=== PATIENT | female | born 1950 | race Caucasian/White ===

== ENCOUNTER → 2019-02-18 10:36 | Outpatient (CLI) | payer MEDICARE, OTHER, SELFPAY ==
--- NOTE | 2019-02-18 | DI.RAD.S_ITS ---
PROCEDURE: FL BARIUM SWALLOW INDICATIONS: Dysphonia COMPARISON: None. FINDINGS: Function: There is normal esophageal peristalsis. There is mild elicited gastroesophageal reflux. There is normal transit of a calibrated barium tablet through the esophagus into the stomach. Morphology: A small sliding hiatal hernia is present. Air-contrast images demonstrate normal mucosal morphology. No esophageal strictures, extrinsic mass effects, or diverticula. Limited images of the stomach demonstrate normal appearance. There is a moderate-sized duodenal diverticulum in the horizontal segment of the duodenum. IMPRESSION: 1. A small hiatal hernia. 2. Mild gastric esophageal reflux. 3. A moderate-sized duodenal diverticulum. Dictated by: Levy Matthews M.D. on 02/18/2019 at 11:49 Approved by: Levy Matthews M.D. on 02/18/2019 at 11:51
== END ==
PROVIDERS: PCP Internal Medicine; Visit Provider Otolaryngology
DX: R49.0 Dysphonia (principal); K44.9 Diaphragmatic hernia without obstruction or gangrene; K21.9 Gastro-esophageal reflux disease without esophagitis; K57.10 Diverticulosis of small intestine without perforation or abscess without bleeding; R13.19 Other dysphagia
CPT/HCPCS: 74220

== ENCOUNTER → 2019-07-01 12:24 | Outpatient (CLI) | payer MEDICARE, OTHER, SELFPAY ==
--- NOTE | 2019-07-01 12:30 | DI.RAD.S_ITS ---
PROCEDURE: XR CERVICAL SPINE 4V OR 5V INDICATIONS: Cervical spondylosis TECHNIQUE: 5 views of the cervical spine acquired. COMPARISON: Cervical facet injection fluoroscopic images 11/15/2017. MR cervical spine 09/22/2017 FINDINGS: Bones: There is extensive degenerative change most pronounced at the C4-C5 and C5-C6 levels. This is demonstrable by intervertebral disc space height loss, endplate sclerosis, and osteophytosis. The degenerative changes have progressed compared to August 2017. There is mild retrolisthesis of C5 on C6. No fractures or dislocations to the T1 level. There is bony foraminal stenosis at C4-C5, left greater than right. Soft tissues: No prevertebral soft tissue swelling. Atherosclerotic calcifications. IMPRESSION: 1. Severe bony foraminal stenosis at the left C4-C5 level. 2. Extensive degenerative change most pronounced at C4-C5 and C5-C6. Dictated by: Clovis Barnett M.D. on 07/01/2019 at 13:07 Approved by: Clovis Barnett M.D. on 07/01/2019 at 13:13
== END ==
PROVIDERS: PCP Physician Assistant; Visit Provider Physical Medicine & Rehabilitation
DX: M47.22 Other spondylosis with radiculopathy, cervical region (principal); M48.02 Spinal stenosis, cervical region
CPT/HCPCS: 72050

== ENCOUNTER → 2019-07-11 13:14 | Outpatient (CLI) | payer MEDICARE, OTHER, SELFPAY ==
[2019-07-11 14:18] LABS: Add Manual Diff / Slide Review NO; Basophils Absolute Auto 0 /uL (0-100); Basophils Percent Auto 0.6 % (0-2); Eosinophils Absolute Auto 200 /uL (0-450); Hematocrit 42.1 % (36-46); Hemoglobin 14.2 g/dL (12.0-16.0); Lymphocytes Absolute Auto 1200 /uL (1100-4500); Lymphocytes Percent Auto 22.4 % (25-40); Mean Corpuscular HGB Conc 33.6 % (30-36); Mean Corpuscular Hemoglobin 30.4 PG (26-34); Mean Corpuscular Volume 90.3 fL (80-100); Monocytes Absolute Auto 400 /uL (0-900); Monocytes Percent Auto 8.2 % (3-14); Neutrophils Absolute Auto 3600 /uL (1500-7000); Neutrophils Percent Auto 65.8 % (50-75); Platelet Count 243 X10^3/uL (150-400); Red Blood Cell Count 4.66 X10^6/uL (4.0-5.2); Red Cell Distribution Width 13.8 % (11.6-14.8); White Blood Cell Count 5.4 X10^3/uL (4.5-11.0)
[2019-07-11 14:49] LABS: Alanine Aminotransferase 15 IU/L (<35); Albumin 4.4 g/dL (3.5-5.0); Albumin Globulin Ratio 1.9 (1.0-2.8); Alkaline Phosphatase 46 U/L (38-126); Aspartate Aminotransferase 26 IU/L (14-36); Bilirubin Total 0.6 mg/dL (0.2-1.3); Blood Urea Nitrogen 20 mg/dL (7-17); Calcium 10.1 mg/dL (8.4-10.2); Carbon Dioxide 32 mmol/L (22-32); Chloride 102 mmol/L (98-107); Cholesterol 226 mg/dL (140-199); Estimated Glomerular Filt Rate > 60.0 mL/min (>60); Globulin 2.3 g/dL (1.7-4.1); Glucose 86 mg/dL (80-110); HDL Cholesterol 92 mg/dL (40-60); HEMOLYSIS < 15 (0-50); LDL Cholesterol Calculated 118 mg/dL (<100); Potassium 4.3 mmol/L (3.4-5.1); Sodium 142 mmol/L (137-145); Total Protein 6.7 g/dL (6.3-8.2); Triglycerides 78 mg/dL (35-150)
== END ==
PROVIDERS: PCP Physician Assistant; Visit Provider Physician Assistant
DX: E78.2 Mixed hyperlipidemia (principal); E55.9 Vitamin D deficiency, unspecified
CPT/HCPCS: 36415; 80053; 80061; 85025

== ENCOUNTER → 2019-08-28 10:54 | Outpatient (CLI) | payer MEDICARE, OTHER, SELFPAY ==
--- NOTE | 2019-08-28 | DI.RAD.S_ITS ---
PROCEDURE: XR CHEST 2V INDICATIONS: COUGH TECHNIQUE: 2 views of the chest were acquired. COMPARISON: None. FINDINGS: Surgical changes and devices: None. Lungs and pleura: Scattered subsegmental atelectasis and/or scarring. No focal consolidation. No pleural effusions or pneumothorax. Mediastinum: Mediastinal contours are normal. Heart size is normal. Bones and chest wall: No suspicious bony abnormalities. Soft tissues appear unremarkable. IMPRESSION: No acute disease Dictated by: Andres Yadav M.D. on 08/28/2019 at 13:59 Approved by: Andres Yadav M.D. on 08/28/2019 at 14:00
== END ==
PROVIDERS: PCP Physician Assistant; Visit Provider Physician Assistant
DX: R05 Cough (principal)
CPT/HCPCS: 71046

== ENCOUNTER → 2019-10-28 11:30 | Outpatient (CLI) | payer MEDICARE, OTHER, SELFPAY ==
--- NOTE | 2019-10-28 11:32 | DI.MG.S_ITS ---
BILATERAL DIGITAL SCREENING MAMMOGRAM 3D/2D WITH CAD: 10/28/2019 CLINICAL: Routine screening. Comparison is made to exams dated: 09/23/2018 mammogram, 08/01/2016 mammogram, and 02/17/2014 mammogram - [facility]. There are scattered fibroglandular elements in both breasts. Current study was also evaluated with a Computer Aided Detection (CAD) system. No significant masses, calcifications, or other findings are seen in either breast. There has been no significant interval change. IMPRESSION: NEGATIVE There is no mammographic evidence of malignancy. A 1 year screening mammogram is recommended. This exam was interpreted at Station ID: [id number]. NOTE: For mammograms, a report in lay terms will be sent to the patient. Approximately 15% of breast malignancies will not be visualized mammographically. In the management of a palpable breast mass, a negative mammogram must not discourage biopsy of a clinically suspicious lesion. Electronically Signed By: Vitaly east/ramiro:10/28/2019 12:31:03 letter sent: Normal Exam ACR BI-RADS Category 1: Negative 3341F
== END ==
PROVIDERS: PCP Physician Assistant; Referring Provider Physician Assistant; Visit Provider Physician Assistant
DX: Z12.31 Encounter for screening mammogram for malignant neoplasm of breast (principal)
CPT/HCPCS: 77063; 77067

== ENCOUNTER → 2020-07-12 19:42 | Outpatient (ROUT) | payer MEDICARE, OTHER, SELFPAY ==
[2020-07-12 20:01] LABS: Add Manual Diff / Slide Review NO; Basophils Absolute Auto 0 /uL (0-100); Basophils Percent Auto 0.7 % (0-2); Eosinophils Absolute Auto 100 /uL (0-450); Eosinophils Percent Auto 2.6 % (2-4); Hematocrit 41.5 % (36-46); Hemoglobin 13.7 g/dL (12.0-16.0); Lymphocytes Absolute Auto 1000 /uL (1100-4500); Lymphocytes Percent Auto 21.6 % (25-40); Mean Corpuscular Hemoglobin 30.2 PG (26-34); Mean Corpuscular Volume 91.5 fL (80-100); Monocytes Absolute Auto 300 /uL (0-900); Monocytes Percent Auto 7.4 % (3-14); Neutrophils Absolute Auto 3200 /uL (1500-7000); Neutrophils Percent Auto 67.7 % (50-75); Platelet Count 224 X10^3/uL (150-400); Red Blood Cell Count 4.53 X10^6/uL (4.0-5.2); Red Cell Distribution Width 13.9 % (11.6-14.8); White Blood Cell Count 4.7 X10^3/uL (4.5-11.0)
[2020-07-12 20:06] LABS: HEMOLYSIS < 15 (0-50); Iron 84 ug/dL (37-170)
[2020-07-12 20:09] LABS: Alanine Aminotransferase 16 IU/L (<35); Albumin 4.1 g/dL (3.5-5.0); Albumin Globulin Ratio 1.6 (1.0-2.8); Alkaline Phosphatase 49 U/L (38-126); Aspartate Aminotransferase 30 IU/L (14-36); Bilirubin Total 0.6 mg/dL (0.2-1.3); Blood Urea Nitrogen 18 mg/dL (7-17); Calcium 9.8 mg/dL (8.4-10.2); Carbon Dioxide 32 mmol/L (22-32); Chloride 104 mmol/L (98-107); Cholesterol 210 mg/dL (140-199); Estimated Glomerular Filt Rate > 60.0 mL/min (>60); Globulin 2.5 g/dL (1.7-4.1); Glucose 96 mg/dL (80-110); HDL Cholesterol 90 mg/dL (40-60); HEMOLYSIS < 15 (0-50); LDL Cholesterol Calculated 108 mg/dL (<100); Sodium 138 mmol/L (137-145); Total Protein 6.6 g/dL (6.3-8.2); Triglycerides 61 mg/dL (35-150)
[2020-07-12 20:17] LABS: Percent Iron Saturation 34 % (15-50); Total Iron Binding Capacity 249 ug/dL (265-497); Transferrin 203 mg/dL (206-381)
[2020-07-12 20:24] LABS: Vitamin D 25 Hydroxy (D3) 65.1 ng/mL (30.0-100.0)
[2020-07-12 20:42] LABS: Ferritin 65 ng/mL (11-264)
== END ==
PROVIDERS: PCP Physician Assistant; Visit Provider Physician Assistant
DX: E78.2 Mixed hyperlipidemia (principal); D69.9 Hemorrhagic condition, unspecified; E55.9 Vitamin D deficiency, unspecified
CPT/HCPCS: 80053; 80061; 82306; 82728; 83540; 83550; 85025

== ENCOUNTER → 2020-10-29 11:22 | Outpatient (CLI) | payer MEDICARE, SELFPAY ==
--- NOTE | 2020-10-29 | DI.MG.S_ITS ---
BILATERAL DIGITAL SCREENING MAMMOGRAM 3D/2D WITH CAD: 10/29/2020 CLINICAL: Routine screening. Comparison is made to exams dated: 10/28/2019 mammogram - [facility], 09/23/2018 mammogram, and 08/01/2016 mammogram - [facility]. There are scattered fibroglandular elements in both breasts. Current study was also evaluated with a Computer Aided Detection (CAD) system. No significant masses, calcifications, or other findings are seen in either breast. There has been no significant interval change. IMPRESSION: NEGATIVE There is no mammographic evidence of malignancy. A 1 year screening mammogram is recommended. This exam was interpreted at Station ID: [id number]. NOTE: For mammograms, a report in lay terms will be sent to the patient. Approximately 15% of breast malignancies will not be visualized mammographically. In the management of a palpable breast mass, a negative mammogram must not discourage biopsy of a clinically suspicious lesion. Electronically Signed By: Narinder albarran/ramiro:10/29/2020 12:32:28 letter sent: Normal Exam ACR BI-RADS Category 1: Negative 3341F
== END ==
PROVIDERS: PCP Physician Assistant; Referring Provider Physician Assistant; Visit Provider Physician Assistant
DX: Z12.31 Encounter for screening mammogram for malignant neoplasm of breast (principal)
CPT/HCPCS: 77063; 77067

== ENCOUNTER → 2021-08-03 14:27 | Outpatient (CLI) | payer MEDICARE, SELFPAY ==
--- NOTE | 2021-08-03 14:29 | DI.RAD.S_ITS ---
PROCEDURE: XR DEXA AXIAL SKELETON INDICATIONS: Age-related osteoporosis without current pathologic COMPARISON: None. FINDINGS: This blank DEXA report has been sent in error by the PACS system. The correct and complete report will be forthcoming in 1-2 days. Thank you for your patience and understanding. Dictated by: Martha Mcconnell MD, PhD on 08/03/2021 at 16:02 Approved by: Martha Mcconnell MD, PhD on 08/03/2021 at 16:02
== END ==
PROVIDERS: PCP Physician Assistant; Referring Provider Student in an Organized Health Care Education/Training Program; Visit Provider Student in an Organized Health Care Education/Training Program
DX: Z13.820 Encounter for screening for osteoporosis (principal); M81.0 Age-related osteoporosis without current pathological fracture; Z78.0 Asymptomatic menopausal state; Z82.62 Family history of osteoporosis
CPT/HCPCS: 77080

== ENCOUNTER → 2021-11-03 13:10 | Outpatient (CLI) | payer OTHER, SELFPAY ==
--- NOTE | 2021-11-03 | DI.MG.S_ITS ---
BILATERAL DIGITAL SCREENING MAMMOGRAM 3D/2D WITH CAD: 11/03/2021 CLINICAL: Routine screening. Family history of breast cancer. Comparison is made to exams dated: 10/29/2020 mammogram, 10/28/2019 mammogram - [facility], 09/23/2018 mammogram, and 08/01/2016 mammogram - [facility]. There are scattered fibroglandular elements in both breasts. Current study was also evaluated with a Computer Aided Detection (CAD) system. There is possible architectural distortion in the left breast at 1 o'clock middle depth. This is more prominent. No other significant masses, calcifications, or other findings are seen in either breast. IMPRESSION: INCOMPLETE: NEEDS ADDITIONAL IMAGING EVALUATION The possible architectural distortion in the left breast is indeterminate. Additional views with possible ultrasound are recommended. This exam was interpreted at Station ID: [id number]. NOTE: For mammograms, a report in lay terms will be sent to the patient. Approximately 15% of breast malignancies will not be visualized mammographically. In the management of a palpable breast mass, a negative mammogram must not discourage biopsy of a clinically suspicious lesion. Electronically Signed By: Clovis Barnett M.D. slc/:11/03/2021 14:51:55 letter sent: Additional Imaging Needed ACR BI-RADS Category 0: Incomplete 3340F
== END ==
PROVIDERS: PCP Physician Assistant; Referring Provider Physician Assistant; Visit Provider Physician Assistant
DX: Z12.31 Encounter for screening mammogram for malignant neoplasm of breast (principal); Z80.3 Family history of malignant neoplasm of breast
CPT/HCPCS: 77063; 77067

== ENCOUNTER → 2021-12-09 12:33 | Outpatient (CLI) | payer OTHER, SELFPAY ==
--- NOTE | 2021-12-09 | DI.MG.S_ITS ---
UNILATERAL LEFT DIGITAL DIAGNOSTIC MAMMOGRAM 3D/2D WITH ADDITIONAL VIEWS: 12/09/2021 CLINICAL: Additional evaluation requested from prior study. Comparison is made to exams dated: 11/03/2021 mammogram, 10/29/2020 mammogram, and 10/28/2019 mammogram - [facility]. There are scattered fibroglandular elements in left breast. The possible architectural distortion in the left breast at 1 o'clock middle depth is no longer seen and is consistent with fibroglandular tissue. This is not seen in additional views. No other significant masses or calcifications are seen in the breast. IMPRESSION: BENIGN There is no mammographic evidence of malignancy. A 1 year screening mammogram is recommended. This exam was interpreted at Station ID: [id number]. NOTE: For mammograms, a report in lay terms will be sent to the patient. Approximately 15% of breast malignancies will not be visualized mammographically. In the management of a palpable breast mass, a negative mammogram must not discourage biopsy of a clinically suspicious lesion. Electronically Signed By: Gatito Cisneros acr/ramiro:12/09/2021 13:02:13 letter sent: Normal Exam ACR BI-RADS Category 2: Benign Finding(s) 3342F
== END ==
PROVIDERS: PCP Physician Assistant; Referring Provider Physician Assistant; Visit Provider Physician Assistant
DX: R92.8 Other abnormal and inconclusive findings on diagnostic imaging of breast (principal)
CPT/HCPCS: 77065; G0279

== ENCOUNTER → 2021-12-24 15:23 | Outpatient (CLI) | payer MEDICARE, SELFPAY | PROVIDERS: PCP Physician Assistant; Visit Provider Physician Assistant | DX: R30.0 Dysuria (principal) | CPT/HCPCS: 87086 ==

== ENCOUNTER → 2022-01-19 12:05 | Outpatient (CLI) | payer MEDICARE, SELFPAY ==
--- NOTE | 2022-01-19 12:07 | DI.US.S_ITS ---
PROCEDURE: US RENAL COMPLETE INDICATIONS: Hematuria, unspecified TECHNIQUE: Real-time scanning was performed of the kidneys and bladder, with image documentation. COMPARISON: None. FINDINGS: Kidneys: Kidneys are normal in size. Right kidney measures 12.2 cm long; left kidney measures 10.6 cm long. Right renal cortical thickness is 1.2 cm; left renal cortical thickness is 1.4 cm. Renal cortical echotexture is normal. No hydronephrosis or nephrolithiasis. No suspicious solid mass lesions. Bladder: Pre-void bladder volume is 26 mL. Post-void residual is 12 mL. Pre-void images demonstrate no intraluminal masses or stones. On pre-void images, neither ureteral jets are noted with color Doppler interrogation. (Of note, ureteral jets may not be detectable in up to 25% of cases due to insufficient differences in specific gravity between ureteral and bladder urine). Miscellaneous: No free pelvic fluid. IMPRESSION: Normal appearance of the kidneys bilaterally. Dictated by: Ashvin Garcia [facility] Interpreted: Rivera Burnett MD on 01/19/2022 at 12:59 Transcribed by: JOAQUIN on 01/19/2022 at 13:00 Approved by: Rivera Burnett M.D. on 01/19/2022 at 16:50
== END ==
PROVIDERS: PCP Physician Assistant; Referring Provider Physician Assistant; Visit Provider Physician Assistant
DX: R10.9 Unspecified abdominal pain (principal); R31.9 Hematuria, unspecified
CPT/HCPCS: 76770

== ENCOUNTER → 2022-04-20 12:42 | Outpatient (CLI) | payer MEDICARE, SELFPAY ==
--- NOTE | 2022-04-20 12:45 | DI.RAD.S_ITS ---
PROCEDURE: XR HUMERUS LT 2V INDICATIONS: Fall on glass, rule out foreign body TECHNIQUE: 2 views of the humerus were acquired. COMPARISON: None. FINDINGS: Bones: No fractures or dislocations. No suspicious bony lesions. Soft tissues: No suspicious soft tissue calcifications. No radiopaque foreign body. IMPRESSION: No visualized acute fracture or dislocation. However, if clinical concern and/or pain persist, short interval imaging followup in 7-10 days is recommended, as occult injury cannot be definitively excluded. No radiopaque foreign body. Dictated by: Sarah Fontenot M.D. on 04/20/2022 at 13:35 Approved by: Sarah Fontenot M.D. on 04/20/2022 at 13:35
--- NOTE | 2022-04-20 12:45 | DI.RAD.S_ITS ---
PROCEDURE: XR KNEE LT 3V INDICATIONS: Fall on left knee, history of reported TKA TECHNIQUE: 3 views of the knee were acquired. COMPARISON: None. FINDINGS: Bones: No fractures or dislocations. No suspicious bony lesions. Knee arthroplasty is present. Hardware is intact without hardware fracture or periprosthetic lucency to suggest loosening. Soft tissues: No joint effusion. No suspicious soft tissue calcifications. IMPRESSION: No visualized acute fracture or dislocation. However, if clinical concern and/or pain persist, short interval imaging followup in 7-10 days is recommended, as occult injury cannot be definitively excluded. Dictated by: Sarah Fontenot M.D. on 04/20/2022 at 13:34 Approved by: Sarah Fontenot M.D. on 04/20/2022 at 13:35
== END ==
PROVIDERS: PCP Physician Assistant; Referring Provider Physician Assistant Medical; Visit Provider Physician Assistant Medical
DX: S41.112A Laceration without foreign body of left upper arm, initial encounter (principal); M25.562 Pain in left knee
CPT/HCPCS: 73060; 73562

== ENCOUNTER → 2022-05-08 12:22 | Outpatient (CLI) | payer MEDICARE, SELFPAY ==
--- NOTE | 2022-05-08 | DI.ECHO.S_ITS ---
[facility] +---------+ : : [address] : [place] : : : : [id number] : : : : Phone: [phone]---------+ Echocardiogram Report + + :Name: ABELARDO PONCE Study Date: 05/08/2022 Height: 66 in : :[facility] ReadingLocation: Weight: 160 lb : : Gender: Female BSA: 1.8 m2 : :: 1950 Age: 71 yrs BP: 144/85 mmHg: :Reason For Study: Atrial fibrillation : :Ordering Physician: GIAN, : :WAN Performed By: Daniele Zhao : :Referring: WAN DAI : + + Interpretation Summary The left ventricle is normal in size and wall thickness. Left ventricular systolic function is normal. The ejection fraction is estimated to be 55-60%. There are no focal wall motion abnormalities. The right ventricle is normal in size and function. Pulmonary artery pressures cannot be estimated because of the lack of a measurable TR jet velocity. Both atria are normal in size. There is mild mitral regurgitation. There is mild aortic regurgitation. There is no other significant valvular heart disease. The aortic root is normal size. Procedure: A two-dimensional transthoracic echocardiogram with color flow and Doppler was performed. The study quality was technically difficult. There is no prior echocardiogram noted for this patient. The patient was in normal sinus rhythm during the exam. Left Ventricle: The left ventricle is normal in size and wall thickness. Left ventricular systolic function is normal. The ejection fraction is estimated to be 55-60%. There are no focal wall motion abnormalities. Diastolic function could not be accurately assessed due to contradictory data. Right Ventricle: The right ventricle is normal in size and function. Atria: Both atria are normal in size. The interatrial septum grossly appears intact with no obvious evidence for an atrial septal defect. Mitral Valve: There is mild mitral annular calcification. There is mild mitral regurgitation. Aortic Valve: There is mild aortic valve sclerosis. There is mild aortic regurgitation. Tricuspid Valve: The tricuspid valve is normal in structure and function. There is trace tricuspid regurgitation. Pulmonary artery pressures cannot be estimated because of the lack of a measurable TR jet velocity. Pulmonic Valve: The pulmonic valve is not well seen, but is grossly normal. There is no other significant valvular heart disease. Great Vessels: The aortic root is normal size. The dimensions of the ascending aorta are normal. The IVC is of normal diameter and collapses greater than 50% with a sniff. This suggests a low right atrial pressure of 3 mm Hg. Pericardium/ Pleura There is no pericardial effusion. There is no pleural effusion. MMode/2D Measurements & Calculations LVIDd: 4.9 cm LVOT diam: 2.1 cm LVIDs: 3.5 cm Ao root diam: 3.3 cm FS: 28.6 % asc Aorta Diam: 3.3 cm IVSd: 1.0 cm LVPWd: 0.80 cm LV singh. diameter/BSA (cm/m^2): 2.7 LV sys. diameter/BSA (cm/m^2): 1.9 LA dimension: 3.9 cm RA long axis: 4.2 cm LA A2 area: 18.0 cm2 IVC diam: 1.9 cm LA A4 area: 17.0 cm2 LA length (vol): 4.8 cm LA vol: 54.6 ml LA vol index: 30.0 ml/m2 TAPSE_phl: 2.0 cm Doppler Measurements & Calculations Ao V2 max: 151.0 cm/sec LVOT Max Praveen: 93.3 cm/sec Ao V2 mean: 108.0 cm/sec LV V1 max P.5 mmHg Ao max P.0 mmHg LV V1 VTI: 21.2 cm Ao mean P.0 mmHg KATRINA(I,D): 2.2 cm2 Ao V2 VTI: 33.4 cm KATRINA(V,D): 2.1 cm2 sev ratio: 0.63 KATRINA indexed to BSA (cm^2/m^2): 1.2 AI P1/2t: 594.1 msec AI dec slope: 211.0 cm/sec2 MV E max praveen: 87.0 cm/sec SV(LVOT): 73.4 ml MV A max praveen: 66.0 cm/sec MV E/A: 1.3 Med Peak E' Praveen: 5.2 cm/sec E/E' med: 16.7 Lat Peak E' Praveen: 7.5 cm/sec E/E' lat: 11.5 E/e' average: 14.1 MV dec time: 0.20 sec AV P1/2t-pr_phl: 593.0 msec MV P1/2t-pr_phl: 57.0 msec AV VR_phl: 0.62 KATRINA(VTI)/BSA_phl: 1.2 Reading Physician:10:06 AM
== END ==
PROVIDERS: PCP Physician Assistant; Referring Provider Internal Medicine Cardiovascular Disease; Visit Provider Internal Medicine Cardiovascular Disease
DX: I48.0 Paroxysmal atrial fibrillation (principal); I34.0 Nonrheumatic mitral (valve) insufficiency; I35.1 Nonrheumatic aortic (valve) insufficiency
CPT/HCPCS: 93306

== ENCOUNTER → 2022-10-25 10:43 | Outpatient (CLI) | payer MEDICARE, SELFPAY ==
--- NOTE | 2022-10-25 10:44 | DI.RAD.S_ITS ---
PROCEDURE: XR SHOULDER RT MIN 2V INDICATIONS: RIGHT SHOULDER PAIN TECHNIQUE: 3 views of the shoulder were acquired. COMPARISON: None. FINDINGS: Bones: No fractures or dislocations. No suspicious bony lesions. Visualized ribs appear intact. Soft tissues: Calcific tendinosis, right supraspinatus tendon. IMPRESSION: Calcific tendinosis. No evidence acute bony abnormality of the right shoulder. If clinical suspicion and/or symptoms persist, further assessment with repeat plain films, or advanced imaging (e.g., CT, MRI, or bone scan) may be helpful for further assessment. Dictated by: Doroteo Franco M.D. on 10/25/2022 at 11:48 Approved by: Doroteo Franco M.D. on 10/25/2022 at 11:49
--- NOTE | 2022-10-25 10:44 | DI.RAD.S_ITS ---
PROCEDURE: XR CERVICAL SPINE 4V OR 5V INDICATIONS: NECK PAIN TECHNIQUE: 5 views of the cervical spine acquired. COMPARISON: [facility], CR, XR CERVICAL SPINE 4V OR 5V, 07/01/2019, 12:34. FINDINGS: Bones: No fractures or dislocations to the T1 level. Extensive bilateral facet arthropathy. There is multilevel left bony foraminal narrowing, severe at C3-C4 and moderate to severe at C4-C5. Multilevel right bony foraminal narrowing, at least moderate at C3-C4 and [id number] at C4-C5.. Soft tissues: No prevertebral soft tissue swelling. IMPRESSION: Cervical spondylosis with extensive bilateral facet arthropathy and multilevel foraminal narrowing. Dictated by: Doroteo Franco M.D. on 10/25/2022 at 11:50 Approved by: Doroteo Franco M.D. on 10/25/2022 at 11:52
== END ==
PROVIDERS: PCP Physician Assistant; Referring Provider Physical Medicine & Rehabilitation; Visit Provider Physical Medicine & Rehabilitation
DX: M25.511 Pain in right shoulder (principal); M47.22 Other spondylosis with radiculopathy, cervical region; M48.02 Spinal stenosis, cervical region; M75.31 Calcific tendinitis of right shoulder; Z96.653 Presence of artificial knee joint, bilateral; Z96.642 Presence of left artificial hip joint; Z79.01 Long term (current) use of anticoagulants
CPT/HCPCS: 72050; 73030; 99215

== ENCOUNTER → 2022-11-07 12:56 | Outpatient (CLI) | payer OTHER, SELFPAY ==
--- NOTE | 2022-11-07 | DI.MG.S_ITS ---
BILATERAL DIGITAL SCREENING MAMMOGRAM 3D/2D WITH CAD: 11/07/2022 CLINICAL: Routine screening. Comparison is made to exams dated: 12/09/2021 mammogram, 11/03/2021 mammogram, 10/29/2020 mammogram, and 10/28/2019 mammogram - [facility]. There are scattered areas of fibroglandular density in both breasts (category b / 25%-50% glandular tissue). Current study was also evaluated with a Computer Aided Detection (CAD) system. No significant masses, calcifications, or other findings are seen in either breast. There has been no significant interval change. IMPRESSION: NEGATIVE There is no mammographic evidence of malignancy. A 1 year screening mammogram is recommended. Based on the Tyrer Cuzick model (a risk assessment model) the patient's lifetime risk is 3.4% and her 10 year risk is 2.5%. According to the ACR, ACS, and NCCN guidelines, an annual breast MRI exam along with mammogram is recommended if the patient's lifetime risk is 20% or greater. This exam was interpreted at Station ID: [id number]. NOTE: For mammograms, a report in lay terms will be sent to the patient. Approximately 15% of breast malignancies will not be visualized mammographically. In the management of a palpable breast mass, a negative mammogram must not discourage biopsy of a clinically suspicious lesion. Electronically Signed By: Narinder albarran/ramiro:11/07/2022 15:01:11 letter sent: Normal Exam ACR BI-RADS Category 1: Negative 3341F
--- NOTE | 2022-11-07 12:58 | DI.MRI.S_ITS ---
PROCEDURE: MR CERVICAL SPINE WO CON INDICATIONS: Right greater than left axial neck pain TECHNIQUE: Noncontrast sagittal T1 spin echo and T2 fast spin echo, sagittal STIR, foraminal oblique sagittal T2 fast spin echo, and axial gradient echo or T2 fast spin echo through the cervical spine. COMPARISON: None. FINDINGS: Image quality: Excellent. Alignment and Curvature: There is normal bony alignment. Bone Marrow: Marrow demonstrates normal overall signal. Spinal Cord: Visualized spinal cord has normal size and signal. No cerebellar tonsillar herniation. Paraspinous Soft Tissues: No paravertebral masses. Prevertebral soft tissues are normal in thickness. C2-C3: No significant disc bulge. The foramina and central canal are patent. C3-C4: Diffuse disc bulge, disc osteophytes, asymmetric to the left, and uncovertebral hypertrophy causes mild right and severe left foraminal stenosis. The central canal is patent. C4-C5: Diffuse disc bulge, disc osteophytes, and uncovertebral hypertrophy causes severe bilateral foraminal stenosis. The central canal is patent. C5-C6: Diffuse disc bulge, disc osteophytes, and uncovertebral hypertrophy causes severe bilateral foraminal stenosis. There is uncovertebral hypertrophy. The central canal has moderate stenosis. C6-C7: Diffuse disc bulge and disc osteophytes. The central canal is patent. C7-T1: No significant disc bulge. The foramina and central canal are patent. IMPRESSION: 1. Multilevel cervical spondylosis causing foraminal and central canal stenosis, most prominent at C5-6 as detailed above. 2. No abnormal cord signal. Dictated by: Gatito Cisneros M.D. on 11/07/2022 at 18:20 Approved by: Gatito Cisneros M.D. on 11/07/2022 at 18:40
== END ==
PROVIDERS: PCP Physician Assistant; Referring Provider Physician Assistant; Visit Provider Physician Assistant
DX: M47.812 Spondylosis without myelopathy or radiculopathy, cervical region (principal); Z12.31 Encounter for screening mammogram for malignant neoplasm of breast; M48.02 Spinal stenosis, cervical region
CPT/HCPCS: 72141; 77063; 77067

== ENCOUNTER 2022-12-14 09:41 | Outpatient (CLI) | payer OTHER, SELFPAY ==
[2022-12-14] VITALS (10 sets, daily range): BP systolic 108–143; BP diastolic 58–86; PULSE 65–71; RESP 14–20; TEMP 36.4; O2SAT 95–100
--- NOTE | 2022-12-14 09:43 | DI.RAD.S_ITS ---
PROCEDURE: PAIN C/T FACET INJ/BLK 1ST L INDICATIONS: SPINAL STENOSIS COMPARISON: [facility], CR, XR CERVICAL SPINE 4V OR 5V, 10/25/2022, 11:06. [facility], MR, MR CERVICAL SPINE WO CON, 11/07/2022, 13:43. FINDINGS: Fluoroscopic spot filming was performed to verify placement of spinal needles at the right C4-C5, C5-C6, and C6-C7 level(s), as labeled on the films. Appropriate location(s) of the needle tip(s) was confirmed by injection of iodinated contrast. IMPRESSION: Intraprocedural examination within normal limits. Dictated by: Antonio Hwang M.D. on 12/14/2022 at 12:04 Approved by: Antonio Hwang M.D. on 12/14/2022 at 12:04
[2022-12-14] MEDS: MIDAZOLAM 2 MG/2 ML VIAL 4 MG IV (11:17)
[2022-12-14] MEDS: DEXAMETHASONE 10 MG/ML VIAL 30 MG INJ (11:33)
[2022-12-14] MEDS: BUPIVACAINE 0.5% (PF) 30 ML VIAL INJ (11:33)
[2022-12-14] MEDS: IOPAMIDOL 15 ML VIAL 3 ML INJ (11:33)
--- NOTE | 2022-12-14 12:11 | P.PCN_ITS ---
Date/Time/Diagnoses Date of procedure: 12/14/22 Time of procedure: 12:11 Pre-procedure diagnosis: 1. FACET ARTHROPATHY 2. AXIAL NECK PAIN Post-procedure diagnosis: same Procedure Notes Procedure: 1. FLUOROSCOPICALLY GUIDED, CONTRAST-CONTROLLED RIGHT C4/5, C5/6 AND C6/7 FACET JOINT INJECTIONS WITH CONSCIOUS SEDATION. Indications: Carmita is referred by LUIS Cai for treatment of Axial Neck Pain Physician: Jaxson Castellanos Total Fluoroscopy time (seconds): 15 Total sedation minutes: 15 Complications: none Procedure in detail & Post-procedure care: DESCRIPTION OF PROCEDURE Fluoroscopically guided, contrast-controlled right C4/5, C5/6 and C6/7 facet joint injections with conscious sedation. Following review of allergy and review of potential side effects and complications, including, but not necessarily limited to, infection, allergic reaction, local tissue breakdown, stroke, temporary or permanent nerve injury and paralysis, the patient indicated that the patient understood and agreed to proceed. An informed consent document was signed by the patient, witnessed by a nurse, and placed in the patient's chart. Additionally, other treatment options including medications, modalities, and physical therapy were reviewed with the patient. After review of previous anaesthesic history and IV conscious sedation the patient was deemed safe to proceed with today?s procedure with IV conscious sedation as ASA class II designation. Safety time-out was performed to confirm patient ID, procedure to be performed and site of procedure. IV sedation was accomplished with a combination of 4mg of Versed was administered by the RN after DO order, titrated to patient comfort during the course of the procedure while the patient remained responsive to all verbal commands In the prone position, following sterile prep and drape of the cervical spine region, the posterior aspect of the right C4/5, C5/6 and C6/7 facet joints were identified fluoroscopically. The skin was anesthetized via a 25-gauge 1.5-inch needle with 1% lidocaine solution into the corresponding facet joints. At this point, a 25-gauge 2.5-inch spinal needle was atraumatically introduced and advanced under fluoroscopic guidance into the corresponding facet joints. Following negative aspiration, injections of approximately 0.2-cc of Isovue 200 confirmed interarticular placement without vascular uptake. At this point, a total of 1cc including 0.5cc or 5 mg of dexamethasone combined with 0.5 cc of 1% lidocaine solution was injected without complication into each of the corresponding facet joints. The procedure tolerated the procedure well without signs or symptoms of complications prior to transfer to the recovery area continued monitoring without incident. The patient was then transferred to the recovery area where they were observed for an appropriate period of time after the injection. The patient reported a VAS score of 7 prior to the procedure and a post- procedure VAS of 1. POST OP INSTRUCTIONS They were provided a Pain Log to continue to record their response to the target-specific procedure prior to their follow-up visit with their referring physician. Additionally, specific post-injection care instructions and a contact number to our office were provided if concerns arise regarding possible complications associated with the procedure are suspected.
== END 2022-12-14 11:52 | disposition home or self-care (01) ==
LOC: RAD 09:42
PROVIDERS: PCP Physician Assistant; Referring Provider Physical Medicine & Rehabilitation; Visit Provider Physical Medicine & Rehabilitation
DX: M47.812 Spondylosis without myelopathy or radiculopathy, cervical region (principal)
CPT/HCPCS: 64490; 64491; 64492; 99152; J1100; J2250

== ENCOUNTER → 2023-06-28 14:28 | Outpatient (CLI) | payer OTHER, SELFPAY ==
[2023-06-28 15:08] LABS: Add Manual Diff / Slide Review NO; Basophils Absolute Auto 0 /uL (0-100); Basophils Percent Auto 0.3 % (0-2); Eosinophils Absolute Auto 100 /uL (0-450); Eosinophils Percent Auto 2.8 % (2-4); Hematocrit 39.5 % (36-46); Hemoglobin 13.3 g/dL (12.0-16.0); Lymphocytes Absolute Auto 1000 /uL (1100-4500); Lymphocytes Percent Auto 20.5 % (25-40); Mean Corpuscular HGB Conc 33.5 % (30-36); Mean Corpuscular Hemoglobin 30.9 PG (26-34); Mean Corpuscular Volume 92.1 fL (80-100); Monocytes Absolute Auto 300 /uL (0-900); Monocytes Percent Auto 6.9 % (3-14); Neutrophils Absolute Auto 3300 /uL (1500-7000); Neutrophils Percent Auto 69.5 % (50-75); Platelet Count 223 X10^3/uL (150-400); Red Blood Cell Count 4.29 X10^6/uL (4.0-5.2); Red Cell Distribution Width 13.4 % (11.6-14.8); White Blood Cell Count 4.8 X10^3/uL (4.5-11.0)
[2023-06-28 15:45] LABS: Alanine Aminotransferase 16 IU/L (<35); Albumin Globulin Ratio 1.9 (1.0-2.8); Alkaline Phosphatase 51 U/L (38-126); Aspartate Aminotransferase 24 IU/L (14-36); BUN Creatinine Ratio 18.1 (6-22); Bilirubin Total 0.3 mg/dL (0.2-1.3); Blood Urea Nitrogen 13 mg/dL (7-17); Calcium 9.8 mg/dL (8.4-10.2); Carbon Dioxide 29 mmol/L (22-32); Chloride 100 mmol/L (98-107); Estimated Glomerular Filt Rate > 60 mL/min (>60); Globulin 2.1 g/dL (1.7-4.1); Glucose 100 mg/dL (80-110); HEMOLYSIS < 15 (0-50); Sodium 136 mmol/L (137-145); Total Protein 6.1 g/dL (6.3-8.2)
== END ==
PROVIDERS: PCP Physician Assistant; Referring Provider Internal Medicine Cardiovascular Disease; Visit Provider Internal Medicine Cardiovascular Disease
DX: I48.0 Paroxysmal atrial fibrillation (principal); Z79.01 Long term (current) use of anticoagulants
CPT/HCPCS: 36415; 80053; 85025

== ENCOUNTER → 2023-10-08 12:35 | Outpatient (CLI) | payer OTHER, SELFPAY ==
--- NOTE | 2023-10-08 12:45 | DI.RAD.S_ITS ---
Bone Density Report Name: ABELARDO PONCE Age: 73 Sex: Female Ethnicity: White Date of : 1950 Indication: postmenopausal osteoporosis; history of glucocorticoids; Referring Provider: LETA MCCRAY Study: Bone densitometry was performed. Exam Date: October 08, 2023 Accession number: [id number] Bone Density: Region BMD T-score Z-score Classification AP Spine(L1-L4) 0.927 -1.1 1.2 Osteopenia Femoral Neck (Right) 0.608 -2.2 -0.2 Osteopenia Total Hip (Right) 0.686 -2.1 -0.4 Osteopenia Total Forearm (Left) 0.396 -3.4 -1.1 Osteoporosis 1/3 Forearm (Left) 0.519 -2.9 -0.5 Osteoporosis UD Forearm (Left) 0.409 -0.6 1.1 Normal World Health Organization criteria for BMD impression classify patients as: Normal (T-score at or above -1.0), Osteopenia (T-score between -1.0 and -2.5), or Osteoporosis (T-score at or below -2.5). 10-year Fracture Risk(1): Major Osteoporotic Fracture 25% Hip Fracture 8.5% Reported Risk Factors: [place] (), Neck BMD=0.608, BMI=28.6, glucocorticoids, alcohol use (1) FRAX(R) Version 3.08. Fracture probability calculated for an untreated patient. Fracture probability may be lower if the patient has received treatment. Previous Exams: -- Region Exam Age BMD T-score BMD Change BMD Change Date g/cm2 vs Baseline vs Previous -- AP Spine (L1-L4) 10/08/2023 73 0.927 -1.1 0.028 (3.1%)# 0.028 (3.1%)# 08/03/2021 71 0.899 -1.3 Total Hip(Right) 10/08/2023 73 0.686 -2.1 0.050 (7.9%)# 0.050 (7.9%)# 08/03/2021 71 0.636 -2.5 -- *Denotes significance at 95% confidence level, LSC for AP Spine = 0.022 g/cm2, LSC for Total Hip = 0.027 g/cm2 # Denotes dissimilar scan types or analysis methods Impression: The patient has low bone mass, based on the Right Femoral Neck T-score. The patient has an estimated ten-year risk of hip fracture of 8.5% and an estimated ten-year risk of major fracture of 25%, based on the WHO FRAX algorithm. The patient has risk factors, including: excessive alcohol use, history of glucocorticoid therapy. No significant bone loss was observed. Discussion: BONE DENSITY IS LOW AT ONE OR MORE SKELETAL SITES. THE PATIENT'S BMD AND CLINICAL RISK FACTORS CONTRIBUTE TO THIS PATIENT'S HIGH RISK OF FRACTURE. This patient's lowest T-score is low at one or more skeletal sites. It meets the World Health Organization's (WHO) criteria for low bone mass (T-score between -1.0 and -2.5). The patient's 10-year risk of hip fracture and 10 year risk of a major osteoporotic fracture as calculated by FRAX exceeds the threshold where pharmacological therapy is recommended by the National Osteoporosis Foundation (NOF). However, all treatment decisions require clinical judgment and consideration of individual patient factors, including patient preferences, comorbidities, previous drug use, risk factors not captured in the FRAX model (e.g., frailty, falls, vitamin D deficiency, increased bone turnover, interval significant decline in bone density) and possible under or overestimation of fracture risk by FRAX. The patient should follow a healthful lifestyle (good nutrition with adequate calcium and vitamin D, and appropriate weight-bearing exercise). Follow-Up: Consider a repeat BMD and Vertebral Fracture Assessment (VFA) exam in 2 years or sooner if medically necessary, to reassess this patient's status. Reported by: MICHAEL VELEZ M.D. on 10/08/2023 1:05:00 PM.
== END ==
PROVIDERS: PCP Physician Assistant; Referring Provider Physician Assistant; Visit Provider Physician Assistant
DX: M85.851 Other specified disorders of bone density and structure, right thigh
CPT/HCPCS: 77080; 77081

== ENCOUNTER → 2023-12-14 13:10 | Outpatient (CLI) | payer MEDICARE, SELFPAY ==
--- NOTE | 2023-12-14 13:11 | DI.RAD.S_ITS ---
PROCEDURE: XR CHEST 2V INDICATIONS: asthma TECHNIQUE: 2 views of the chest were acquired. COMPARISON: [facility], CR, XR CHEST 2V, 08/28/2019, 10:54. FINDINGS: Surgical changes and devices: None. Lungs and pleura: Lungs are clear. No pleural effusions or pneumothorax. Mediastinum: Mediastinal contours are normal. Heart size is normal. Bones and chest wall: No suspicious bony abnormalities. Soft tissues appear unremarkable. IMPRESSION: No acute pulmonary process. Dictated by: Sarah Fontenot M.D. on 12/14/2023 at 16:08 Approved by: Sarah Fontenot M.D. on 12/14/2023 at 16:08
== END ==
PROVIDERS: PCP Physician Assistant; Referring Provider Internal Medicine Sleep Medicine; Visit Provider Internal Medicine Sleep Medicine
DX: J96.01 Acute respiratory failure with hypoxia (principal); J45.909 Unspecified asthma, uncomplicated
CPT/HCPCS: 71046; 94060; 94726; 94729

== ENCOUNTER 2024-04-07 19:41 | Emergency (ER) | payer MEDICARE, SELFPAY ==
[2024-04-07 19:55] VITALS: BP 113/56; PULSE 77; RESP 16; TEMP 36.7; O2SAT 92; BMI 29.9
--- NOTE | 2024-04-07 20:29 | ED.TRAUMA ---
HPI - Trauma General Chief Complaint: Trauma Stated Complaint: Fx Rib after Fall t-2, R Side Time Seen by Provider: 04/07/24 20:23 Source: patient, RN notes reviewed and old records reviewed Mode of arrival: Family Vehicle Limitations: no limitations History of Present Illness HPI narrative: 73-year-old female with a history of atrial fibrillation on flecainide, atenolol, Xarelto with complaint of ground level fall 2 days ago. Patient states she had or watering can tripped fell forward onto her right ribs. She has had persistent pain since then. She denies head injury denies any neck or back pain, does have discomfort with deep inhalation moving or pushing off of objects when going from seated to standing. Denies any bruising or skin changes. Denies any abdominal back or flank pain. Denies any urinary or GI issues. Patient denies any numbness tingling or weakness or other issues with her extremities. Went to an outside urgent care had a chest x-ray was told she had rib fractures and pleural effusion and told to come to the emergency department. She has not had any lightheadedness or passing out. She was anticoagulated. Related Data Home Medications Medication Instructions Recorded Confirmed calcium c 500 mg PO BID 06/30/19 01/04/24 cholecalciferol (vitamin D3) 10 400 unit PO .qod 06/30/19 01/04/24 mcg (400 unit) capsule knoodnuz-pyoq-cyll 8 mg-folic 400 1 tab PO .qod 06/30/19 01/04/24 mcg-K 50 mcg-lutein 300 mcg tablet (Centrum Silver Women) trazodone 150 mg tablet 150 mg PO BEDTIME 06/30/19 01/04/24 albuterol sulfate 90 mcg/actuation 1 inh inhalation .PRN 10/25/22 01/04/24 aerosol inhaler flecainide 50 mg tablet 50 mg PO .PRN 10/25/22 01/04/24 fluticasone 100 mcg-salmeterol 50 1 inh inhalation BEDTIME 10/25/22 01/04/24 mcg/dose blistr powdr for inhalation rivaroxaban 20 mg tablet (Xarelto) 20 mg PO DAILY 10/25/22 01/04/24 docusate sodium 100 mg capsule 100 mg PO DAILY 12/27/22 01/04/24 fexofenadine 30 mg tablet 60 mg PO DAILY 12/27/22 01/04/24 atenolol 50 mg tablet 50 mg PO DAILY 01/12/23 01/04/24 Previous Rx's Medication Instructions Recorded hydrocodone 5 mg-acetaminophen 325 1 tab PO Q6H PRN pain #14 tabs 04/07/24 mg tablet Allergies Allergy/AdvReac Type Severity Reaction Status Date / Time No Known Drug Allergies Allergy Verified 01/04/24 13:29 Review of Systems Review of Systems ROS Unobtainable: All systems reviewed & are unremarkable except as noted in HPI and below Patient History Medical History Arthropathy of cervical facet joint Calcific supraspinatus tendinitis Anticoagulation adequate History of chronic atrial fibrillation Degenerative joint disease of knee Cervical spondylosis with radiculopathy Surgical History History of total left hip arthroplasty History of total bilateral knee replacement Family History Mother Colon cancer Social History marital status: Smoking Status: Never smoker alcohol intake: current substance use type: does not use Smoking Status: Never smoker Exam Narrative Exam Narrative: GEN: Patient appears in mild distress. HEAD: No evidence of trauma, no raccoon/Pierson sign. NECK: Nontender, painless range of motion, trachea midline Negative for Nexus criteria, no midline line tenderness, distracting injury, altered mental status, neuro deficit, recent EtOH. EYES: PERRLA, EOMI ENT: External inspection normal, trachea is midline, TM's are normal no hemotypanum, Nares are clear, no septal hematoma, no dental or oral injury, airway is normal and with normal occlusion, No bony tenderness RESP: Chest is right chest is tender underneath the right breast, and has symmetric movement, no ecchymosis, breath sounds are normal no crackles, wheezes or rales CVS: Heart sounds are normal, no murmur noted, No JVD. ABG/GI: Nontender, soft, normal bowel sounds, no distention, no organomegaly, pelvic rock is negative NEURO: Oriented AOx3, neuro is grossly intact, sensation and motor is normal all 4 extremities moving, cranial nerves II through XII are intact, GCS is 15 PSYCH: Normal mood and affect SKIN: Intact, warm and dry, no crepitus and without decubitus BACK: No CVA tenderness, no vertebral tenderness, no step-off's, no crepitus EXT: Atraumatic, hips are nontender, no pedal edema, normal color and temperature, normal range of motion of extremities with normal tendon exam, 2+ pulses in all four extremities Initial Vital Signs Initial Vital Signs: Vital Signs Temperature 98.0 F 04/07/24 19:55 Pulse Rate 77 04/07/24 19:55 Respiratory Rate 16 04/07/24 19:55 Blood Pressure 113/56 L 04/07/24 19:55 Pulse Oximetry 92 04/07/24 19:55 Oxygen Delivery Method Room Air 04/07/24 19:55 Course Orders Ordered: Discontinued Medications Ondansetron HCl (Ondansetron 4 Mg/2 Ml Inj) 4 mg IV NOW PRN PRN Reason: Nausea And Vomiting Ondansetron HCl (Ondansetron 4 Mg Odt) 4 mg PO NOW PRN PRN Reason: Nausea And Vomiting Vital Signs Vital signs: Vital Signs - 8 hr 04/07/24 22:03 04/07/24 22:06 04/07/24 22:06 Pulse Rate 72 72 Respiratory Rate 19 Blood Pressure 171/79 H Pulse Oximetry 93 Oxygen Delivery Method 04/07/24 22:38 Pulse Rate 72 Respiratory Rate 26 H Blood Pressure 150/70 H Pulse Oximetry 95 Oxygen Delivery Method Room Air MDM - Trauma Lab Data 04/07/24 20:24 04/07/24 20:24 Labs: Lab Results 04/07/24 Range/Units 20:24 WBC 7.8 (4.5-11.0) X10^3/uL RBC 4.42 (4.0-5.2) X10^6/uL Hgb 13.5 (12.0-16.0) g/dL Hct 40.8 (36-46) % MCV 92.2 (80-100) fL MCH 30.6 (26-34) PG MCHC 33.2 (30-36) % RDW 13.9 (11.6-14.8) % Plt Count 208 (150-400) X10^3/uL Neut % (Auto) 75.3 H (50-75) % Lymph % (Auto) 13.6 L (25-40) % [place] % (Auto) 9.5 (3-14) % Eos % (Auto) 1.2 L (2-4) % Baso % (Auto) 0.4 (0-2) % Neut # (Auto) 5900 (2448-8795) /uL Lymph # (Auto) 1100 (8668-8575) /uL [place] # (Auto) 700 (0-900) /uL Eos # (Auto) 100 (0-450) /uL Baso # (Auto) 0 (0-100) /uL PT 15.7 H (9.4-12.5) SECONDS INR 1.4 H (0.9-1.3) Sodium 136 L (137-145) mmol/L Potassium 3.7 (3.4-5.1) mmol/L Chloride 104 (98-107) mmol/L Carbon Dioxide 29 (22-32) mmol/L BUN 12 (7-17) mg/dL Creatinine 0.73 (0.52-1.04) mg/dL Estimated GFR > 60 (>60) mL/min BUN/Creatinine Ratio 16.4 (6-22) Glucose 116 H (80-110) mg/dL Calcium 9.8 (8.4-10.2) mg/dL Total Bilirubin 0.6 (0.2-1.3) mg/dL AST 25 (14-36) IU/L ALT 20 (<35) IU/L Alkaline Phosphatase 48 (38-126) U/L Total Protein 6.9 (6.3-8.2) g/dL Albumin 4.2 (3.5-5.0) g/dL Globulin 2.7 (1.7-4.1) g/dL Albumin/Globulin Ratio 1.6 (1.0-2.8) Lipase 60 (23-300) U/L Imaging Data CT scan - chest: Radiologist's Impression: Close Chest/Abdomen/Pelvis CT (Signed) Chris Mccartney - 04/07/24 Launch?[address] [address] [address] Scan Report Signed Patient: Carmita Conde MR#: [id number] : 1950 Acct:[id number] Age/Sex: 73 / F Date of Service: 04/07/24 Loc: ED Accession Number: [id number] Procedure: CT chest abd pel w con Ordering Provider: Nelda Mattson D.O. PROCEDURE: CT CHEST ABD PEL W CON INDICATIONS: rib fx, fluid collection on Xray, fall, sent from [facility] TECHNIQUE: After the administration of intravenous contrast, 5 mm thick sections acquired from the lung apices to the symphysis. 5 mm coronal and sagittal reformats were performed, with additional 7 mm MIP reformats through the lungs. For radiation dose reduction, the following was used: automated exposure control, adjustment of mA and/or kV according to patient size. COMPARISON: None. FINDINGS: Image quality: Excellent. CHEST: Lower Neck: No enlarged lymph nodes. Thyroid: No thyroid nodules which require sonographic follow up, per consensus guidelines. Axillae: No enlarged lymph nodes. Chest Wall: Unremarkable. Lungs and Pleura: Small right-sided pleural effusion, with fluid attenuation. Bibasilar atelectasis. Scattered solid pulmonary nodules, largest measuring 3-4 mm in the right upper lobe (series 3, image 100). Heart: Heart size is normal. No pericardial effusion. Thoracic Vessels: The aorta and pulmonary arteries demonstrate normal size. Mediastinum and Shelbie: No enlarged lymph nodes. Esophagus: No wall thickening. Trace hiatal hernia. ABDOMEN: Liver: No solid mass. Scattered subcentimeter hypoattenuating lesions, too small to characterize by CT but probably small cysts. Gallbladder: No radiopaque gallstones or wall thickening. Biliary ducts: No biliary dilation. Pancreas: No ductal dilation. Spleen: Size is within normal limits. Adrenal Glands: No adrenal nodules. Kidneys and Ureters: No hydronephrosis. No solid mass. No complex renal cystic lesion which requires follow up. Stomach and Bowel: Normal colonic caliber, without significant wall thickening. 4 cm duodenal diverticulum extending off the 4th segment. No significant diverticular disease. Appendix not visualized. Peritoneum: No abnormal intraperitoneal fluid. No free air. Ventral Wall: No significant ventral hernia. Abdominal Nodes: No retroperitoneal or mesenteric adenopathy by size criteria. Vessels: Aorta and inferior vena cava are normal in size. PELVIS: Pelvic Organs: Unremarkable. Bladder: No bladder wall thickening, accounting for underdistention. Pelvic Nodes: No enlarged lymph nodes. Miscellaneous: No inguinal hernias are seen. Bones: Minimally to mildly displaced anterolateral right 3rd through 10th rib fractures. These fractures are in one location, excluding flail chest pathology. Left total hip arthroplasty. IMPRESSION: Minimally to mildly displaced right 3rd through 10th rib fractures, without full chest pathology. No pneumothorax. Small right pleural effusion, with low attenuation, favoring simple fluid over hemothorax. Dictated by: Chris Mccartney M.D. on 04/07/2024 at 20:59 Approved by: Chris Mccartney M.D. on 04/07/2024 at 21:06 ECG Data Attestation: I personally reviewed and interpreted this ECG as follows: Interpretation: AFib rate 88 QRS of 92 QTC 484, no acute ST elevation or depression noted. MDM Narrative Medical decision making narrative: 73-year-old female anticoagulant had a ground level fall 2 days ago has persistent right rib pain, patient had a x-ray at outside facility was told she had rib fractures and a pleural effusion and told to come to the ER. Vitals are stable she is anticoagulated unable to see the images or if this was a large fluid collection. Labs labs show white count of 7.8 hemoglobin of 13.5 platelets of 208. Sodium of 136 potassium 3 7 chloride of 104 CO2 of 29 BUN 12 creatinine 0.73 glucose of 116 LFTs are negative. Imaging, minimally displaced right 3rd through 10th rib fractures without full chest pathology no pneumothorax small right pleural effusion with low attenuation favor simple fluid over hemothorax. Patient has 4 cm duodenal diverticulum extending off the for segment. EKG shows AFib rate 88 QRS of 92 QTC 4 4, no acute ST changes appreciated. Patient has known history of AFib patient has been rate controlled here in the department. Patient would meet observation criteria, her vitals are appropriate or hemoglobin is appropriate she does have significant from fractures but is doing very well is 2 days post injury. Patient O2 is 92-95%. Patient has been tolerating well had a 3 day prescription for some pain medication from the urgent care. We will extend this. Discussed with patient to use incentive spirometer with teaching from RT. Over the past 2 days she is maintained her O2 she is tolerating very well I do not think she requires admission at this time although we discussed it. Patient feels comfortable returning home. Did discuss she should have repeat imaging to make sure pleural effusion isn't increasing over time. Discharge Plan Departure Patient Disposition: Home Clinical Impression: Fracture of ribs, multiple, closed, Pleural effusion Instructions: DI for Rib Fracture Activity Restrictions/Additional Instructions: You have rib fractures on the right 3rd through 10th ribs. There is a small pleural effusion but seems more consistent with fluid then blood. I would recommend following up in the next week to have repeat chest x-ray to make sure the effusion has not gotten bigger in size. Continue with pain medication as prescribed. Some additional pain medication was sent to [facility] in [place]. This medication can make you sleepy do not drive, perform hazardous activities or make any major decisions while taking it. This medication will make you constipated please take a stool softener once to twice daily until stools are soft and regular. Use incentive spirometer once hourly while awake for the next 2 weeks. Please return for new or worsening chest pain, lightheadedness or passing out, coughing up blood, shortness of breath, persistent vomiting, new swelling of extremities or other new or concerning changes. Prescriptions: New hydrocodone-acetaminophen 5-325 mg tablet 1 tab PO Q6H PRN (Reason: pain) Qty: 14 0RF No Action docusate sodium 100 mg Capsule 100 mg PO DAILY Celeste 30 mg Tablet 60 mg PO DAILY trazodone 150 mg tablet 150 mg PO BEDTIME calcium c 500 mg PO BID Centrum Silver Women 8 mg iron-400 mcg-300 mcg tablet 1 tab PO .qod cholecalciferol (vitamin D3) 400 unit capsule 400 unit PO .qod Xarelto 20 mg tablet 20 mg PO DAILY fluticasone propion-salmeterol 100-50 mcg/dose blister with device 1 inh inhalation BEDTIME flecainide 50 mg tablet 50 mg PO .PRN albuterol sulfate 90 mcg/actuation HFA aerosol inhaler 1 inh inhalation .PRN atenolol 50 mg tablet 50 mg PO DAILY Referrals: Raquel Cai PA-C [Primary Care Provider] - Stand Alone Forms: Patient Portal/API
[2024-04-07 20:39] LABS: Add Manual Diff / Slide Review NO; Basophils Absolute Auto 0 /uL (0-100); Basophils Percent Auto 0.4 % (0-2); Eosinophils Absolute Auto 100 /uL (0-450); Eosinophils Percent Auto 1.2 % (2-4); Hematocrit 40.8 % (36-46); Hemoglobin 13.5 g/dL (12.0-16.0); Lymphocytes Absolute Auto 1100 /uL (1100-4500); Lymphocytes Percent Auto 13.6 % (25-40); Mean Corpuscular HGB Conc 33.2 % (30-36); Mean Corpuscular Hemoglobin 30.6 PG (26-34); Mean Corpuscular Volume 92.2 fL (80-100); Monocytes Absolute Auto 700 /uL (0-900); Monocytes Percent Auto 9.5 % (3-14); Neutrophils Absolute Auto 5900 /uL (1500-7000); Neutrophils Percent Auto 75.3 % (50-75); Platelet Count 208 X10^3/uL (150-400); Red Blood Cell Count 4.42 X10^6/uL (4.0-5.2); Red Cell Distribution Width 13.9 % (11.6-14.8); White Blood Cell Count 7.8 X10^3/uL (4.5-11.0)
--- NOTE | 2024-04-07 20:46 | EKG_ITS ---
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
[2024-04-07 20:49] LABS: INR 1.4 (0.9-1.3); Prothrombin Time 15.7 SECONDS (9.4-12.5)
[2024-04-07 20:55] LABS: Alanine Aminotransferase 20 IU/L (<35); Albumin 4.2 g/dL (3.5-5.0); Albumin Globulin Ratio 1.6 (1.0-2.8); Alkaline Phosphatase 48 U/L (38-126); Aspartate Aminotransferase 25 IU/L (14-36); BUN Creatinine Ratio 16.4 (6-22); Bilirubin Total 0.6 mg/dL (0.2-1.3); Blood Urea Nitrogen 12 mg/dL (7-17); Calcium 9.8 mg/dL (8.4-10.2); Carbon Dioxide 29 mmol/L (22-32); Chloride 104 mmol/L (98-107); Estimated Glomerular Filt Rate > 60 mL/min (>60); Globulin 2.7 g/dL (1.7-4.1); Glucose 116 mg/dL (80-110); HEMOLYSIS < 15 (0-50); Lipase 60 U/L (23-300); Potassium 3.7 mmol/L (3.4-5.1); Sodium 136 mmol/L (137-145); Total Protein 6.9 g/dL (6.3-8.2)
[2024-04-07 22:03] VITALS: PULSE 72
[2024-04-07 22:06] VITALS: BP 171/79; PULSE 72; RESP 19; O2SAT 93
[2024-04-07 22:38] VITALS: BP 150/70; PULSE 72; RESP 26; O2SAT 95
== END 2024-04-07 22:40 | disposition home or self-care (01) ==
PROVIDERS: Emergency Provider Emergency Medicine; PCP Physician Assistant
DX: S22.41XA Multiple fractures of ribs, right side, initial encounter for closed fracture (principal); J90 Pleural effusion, not elsewhere classified; Z79.01 Long term (current) use of anticoagulants; W01.0XXA Fall on same level from slipping, tripping and stumbling without subsequent striking against object, initial encounter
CPT/HCPCS: 36415; 71260; 74177; 80053; 83690; 85025; 85610; 93005; 99284; Q9967

== ENCOUNTER → 2024-04-11 14:42 | Outpatient (CLI) | payer MEDICARE, SELFPAY ==
--- NOTE | 2024-04-11 14:47 | DI.RAD.S_ITS ---
PROCEDURE: XR RIBS RT 2V INDICATIONS: RIB FRACTURE TECHNIQUE: 2 views of the ribs were acquired. COMPARISON: [facility], CT, CT CHEST ABD PEL W CON, 04/07/2024, 20:32. FINDINGS: Surgical changes and devices: None. Bones and chest wall: There are multiple right-sided rib fractures appearing laterally on the 3rd 4th 5th, 6th, 7th and 8th ribs. It is noted prior CT demonstrated several more additional inferior rib fractures not as well identified on x-ray. No visualized pneumothorax. No suspicious bony lesions. Overlying soft tissues appear unremarkable. Lungs and pleura: The visualized lung appears clear. No pleural effusions or pneumothorax are visible. IMPRESSION: Multiple right-sided rib fractures without pneumothorax. Dictated by: Sarah Fontenot M.D. on 04/14/2024 at 13:08 Approved by: Sarah Fontenot M.D. on 04/14/2024 at 13:12
== END ==
PROVIDERS: PCP Physician Assistant; Referring Provider Physician Assistant; Visit Provider Physician Assistant
DX: S22.41XD Multiple fractures of ribs, right side, subsequent encounter for fracture with routine healing (principal); J90 Pleural effusion, not elsewhere classified; X58.XXXD Exposure to other specified factors, subsequent encounter
CPT/HCPCS: 71100

== ENCOUNTER → 2024-09-30 12:12 | Outpatient (CLI) | payer MEDICARE, SELFPAY ==
--- NOTE | 2024-09-30 12:13 | DI.RAD.S_ITS ---
PROCEDURE: XR SHOULDER RT MIN 2V INDICATIONS: right shoulder pain TECHNIQUE: 3 views of the shoulder were acquired. COMPARISON: [facility], CR, XR SHOULDER RT MIN 2V, 10/25/2022, 11:06. FINDINGS: Bones: No fractures or dislocations. No suspicious bony lesions. Visualized ribs appear intact. Mild acromioclavicular joint and glenohumeral joint osteoarthritis. Soft tissues: No suspicious soft tissue calcifications. IMPRESSION: No acute bony abnormality. Mild osteoarthritis. Dictated by: Martha Mcconnell MD, PhD on 09/30/2024 at 12:42 Approved by: Martha Mcconnell MD, PhD on 09/30/2024 at 12:43
== END ==
PROVIDERS: PCP Physician Assistant; Referring Provider Physical Medicine & Rehabilitation; Visit Provider Physical Medicine & Rehabilitation
DX: M25.511 Pain in right shoulder (principal); M19.011 Primary osteoarthritis, right shoulder
CPT/HCPCS: 73030

== ENCOUNTER → 2024-10-22 11:58 | Outpatient (CLI) | payer MEDICARE, SELFPAY ==
--- NOTE | 2024-10-22 11:59 | DI.RAD.S_ITS ---
PROCEDURE: XR SHOULDER LT MIN 2V INDICATIONS: LEFT SHOULDER PAIN TECHNIQUE: 4 views of the shoulder were acquired. COMPARISON: [facility], CR, XR SHOULDER RT MIN 2V, 09/30/2024, 12:12. FINDINGS: Bones: No fractures or dislocations. No suspicious bony lesions. Visualized ribs appear intact. Soft tissues: No suspicious soft tissue calcifications. IMPRESSION: No acute bony abnormality. Approved by: Marcellus Langley M.D. on 10/22/2024 at 13:20
== END ==
PROVIDERS: PCP Physician Assistant; Referring Provider Physical Medicine & Rehabilitation; Visit Provider Physical Medicine & Rehabilitation
DX: M25.512 Pain in left shoulder (principal)
CPT/HCPCS: 73030

== ENCOUNTER → 2024-12-15 12:16 | Outpatient (CLI) | payer MEDICARE, SELFPAY ==
--- NOTE | 2024-12-15 12:17 | DI.ECHO.S_ITS ---
[facility] : : [address] : : [place] : : [id number] : : Phone: [phone] Echocardiogram Report + + :Name: ABELARDO PONCE Study Date: 12/15/2024 Height: 65.5 in: :[facility] ReadingLocation: Weight: 183 lb : : Gender: Female BSA: 1.9 m2 : :: 1950 Age: 74 yrs BP: 138/78 mmHg: :Reason For Study: ATRIAL FIBRILLATION : :Ordering Physician: GIAN, : :WAN Performed By: Nesha Shrestha : :Referring: WAN DAI : + + Interpretation Summary The left ventricle is normal in size and wall thickness. Left ventricular systolic function appears normal without focal wall motion abnormalities. The ejection fraction is estimated to be 60-65%. The right ventricle is normal in size and function. The right ventricular systolic pressure is estimated to be at least 30 mmHg based on an estimated right atrial pressure of 3 mm Hg. The left atrium is mildly dilated. There is mild mitral regurgitation. There is mild aortic regurgitation. There is no other significant valvular heart disease. The aortic root is normal size. No significant changes since prior echo study on 05/08/2022. Procedure: A two-dimensional transthoracic echocardiogram with color flow and Doppler was performed. The study quality was technically adequate. Comparison is made with the echocardiogram of 05/08/2022. The patient had occasional PVCs during the exam. The patient was in sinus bradycardia with heart rates between 50-61 bpm during the exam. Left Ventricle: The left ventricle is normal in size and wall thickness. Left ventricular systolic function appears normal without focal wall motion abnormalities. The ejection fraction is estimated to be 60-65%. Diastolic function could not be accurately assessed due to atrial fibrillation. Right Ventricle: The right ventricle is normal in size and function. Atria: The left atrium is mildly dilated. Right atrial size is normal. There is no Doppler evidence for an interatrial shunt. The interatrial septum bows toward right atrium consistent with elevated left atrial pressure. Mitral Valve: The mitral valve leaflets appear borderline thickened, but open well. There is mild mitral regurgitation. Aortic Valve: The aortic valve is trileaflet. The aortic valve is mildly calcified. There is minimally reduced leaflet mobility. There is no aortic valve stenosis. There is mild aortic regurgitation. Tricuspid Valve: The tricuspid valve leaflets are thin and pliable. There is mild tricuspid regurgitation. The right ventricular systolic pressure is estimated to be at least 30 mmHg based on an estimated right atrial pressure of 3 mm Hg. Pulmonic Valve: The pulmonic valve is not well seen, but is grossly normal. There is a trace or physiologic amount of pulmonic regurgitation. There is no other significant valvular heart disease. Great Vessels: The aortic root is normal size. The dimensions of the ascending aorta are normal. The IVC is of normal diameter and collapses greater than 50% with a sniff. This suggests a low right atrial pressure of 3 mm Hg. Pericardium/ Pleura There is no pericardial effusion. There is no pleural effusion. MMode/2D Measurements & Calculations LVIDd: 5.0 cm LVOT diam: 2.1 cm LVIDs: 3.2 cm Ao root diam: 3.5 cm FS: 36.0 % asc Aorta Diam: 3.4 cm EPSS: 0.40 cm Ao Arch Diam (Prox Trans): 2.9 cm IVSd: 0.68 cm LVPWd: 0.67 cm LV singh. diameter/BSA (cm/m^2): 2.6 LV sys. diameter/BSA (cm/m^2): 1.7 LA A2 area: 21.0 cm2 RA long axis: 4.4 cm LA A4 area: 20.4 cm2 RA area: 13.4 cm2 LA length (vol): 5.0 cm RA vol: 34.9 ml LA vol: 73.1 ml RA : 18.2 ml/m2 LA vol index: 38.1 ml/m2 IVC diam: 1.7 cm RVD1 (basal): 2.9 cm RVD2 (mid): 3.1 cm TAPSE: 1.7 cm Doppler Measurements & Calculations Ao V2 max: 165.8 cm/sec LVOT Max Praveen: 97.2 cm/sec Ao V2 mean: 118.8 cm/sec LV V1 max P.8 mmHg Ao max P.0 mmHg LV V1 VTI: 23.2 cm Ao mean P.2 mmHg KATRINA(I,D): 1.9 cm2 Ao V2 VTI: 41.6 cm KATRINA(V,D): 2.0 cm2 sev ratio: 0.56 KATRINA indexed to BSA (cm^2/m^2): 1.00 AI P1/2t: 630.4 msec AI dec slope: 186.4 cm/sec2 MV E max praveen: 93.6 cm/sec TR max praveen: 259.7 cm/sec MV A max praveen: 92.8 cm/sec TR max P.0 mmHg MV E/A: 1.0 PA V2 max: 87.1 cm/sec Med Peak E' Praveen: 6.3 cm/sec PA V2 mean: 55.9 cm/sec E/E' med: 14.9 PA mean P.4 mmHg Lat Peak E' Praveen: 9.1 cm/sec PA pr(Accel): 25.1 mmHg E/E' lat: 10.2 E/e' average: 12.6 MV dec time: 0.17 sec SV(LVOT): 79.7 ml Reading Physician:06:54 PM
== END ==
PROVIDERS: PCP Physician Assistant; Referring Provider Internal Medicine Cardiovascular Disease; Visit Provider Internal Medicine Cardiovascular Disease
DX: I08.3 Combined rheumatic disorders of mitral, aortic and tricuspid valves (principal); I48.0 Paroxysmal atrial fibrillation
CPT/HCPCS: 93306

== ENCOUNTER → 2025-06-22 13:48 | Outpatient (CLI) | payer MEDICARE, SELFPAY ==
[2025-06-22 14:41] LABS: Digoxin 0.9 ng/mL (0.8-2.0)
== END ==
PROVIDERS: PCP Internal Medicine; Referring Provider Internal Medicine; Visit Provider Internal Medicine Cardiovascular Disease
DX: Z51.81 Encounter for therapeutic drug level monitoring (principal); Z79.899 Other long term (current) drug therapy
CPT/HCPCS: 36415; 80162